=== PATIENT | female | born 1980 | race Caucasian/White ===

== ENCOUNTER → 2023-03-15 | Outpatient (CLI) | payer BC ==
--- NOTE | 2023-03-16 11:19 | US ---
EXAMINATION TYPE: US st tissue head/neck DATE OF EXAM: 03/15/2023 COMPARISON: NONE CLINICAL INDICATION: Female, 42 years old with history of R59.0 LOCALIZED ENLARGED LYMPH NODES; sonog rapher notes: palpable on left neck that comes and goes TECHNIQUE: soft tissue neck along the left palpable site FINDINGS AND IMPRESSION: Director Special Education notes: 2 lymph nodes next to each other at the palpable area, largest = 1.3 x 1.1 x 0.6cm . This could be reactive/post inflammatory. Recommend clinical follow-up. Consider ultrasound reassessm ent in 2-3 months.
== END | disposition home or self-care (01) ==
LOC: RADUSWWP 16:58
PROVIDERS: ATTEND Family Medicine
DX: R59.0 Localized enlarged lymph nodes (principal)
CPT/HCPCS: 76536

== ENCOUNTER → 2023-05-11 | Outpatient (CLI) | payer BC ==
--- NOTE | 2023-05-16 08:34 | MM ---
Reason for Exam: Screening (asymptomatic). Last mammogram was performed 1 year(s) and 4 month(s) ago. Patient History: Menarche at age 13. First Full-Term at age 35. Late child-bearing (after 28). Last menstrual period: 04/06/2023 Risk Values: Buffy 5 year model risk: 1.0%. NCI Lifetime model risk: 12.0%. Prior Study Comparison: 08/14/2019 Bilateral Screening Mammogram, [facility]. 01/18/2022 Bilateral Screening Mammogram, [facility]. 01/25/2022 Bilateral Diagnostic Mammogram, [facility]. Patient's first Mammogram. Tissue Density: The breasts are heterogeneously dense, which may obscure small masses. Findings: Analyzed By CAD. There is no suspicious group of microcalcifications or new suspicious mass. Overall Assessment: Negative, BI-RAD 1 Management: Screening Mammogram of both breasts in [address] [facility] will attempt to contact patient to return for supplemental views and ultrasound if indicated. Patient should continue monthly self-breast exams. A clinical breast exam by your physician is recommended on an annual basis. This exam should not preclude additional follow-up of suspicious palpable abnormalities. Note on Buffy scores and lifetime risk: 1. A Buffy score greater than 3% is considered moderate risk. If this is the case, consider specialist referral to assess eligibility for a risk reducing agent. 2. If overall lifetime risk for the development of breast cancer is 20% or higher, the patient may qualify for future screening with alternating mammogram and breast MRI. Electronically signed and approved by: Santosh Lagos DO
== END | disposition home or self-care (01) ==
LOC: RADMAMWWP 15:43
PROVIDERS: ATTEND Family Medicine
DX: Z12.31 Encounter for screening mammogram for malignant neoplasm of breast (principal)
CPT/HCPCS: 77063; 77067

== ENCOUNTER → 2023-05-11 | Outpatient (CLI) | payer BC ==
--- NOTE | 2023-05-13 16:33 | US ---
EXAMINATION TYPE: US pelvic complete DATE OF EXAM: 05/11/2023 COMPARISON: NONE CLINICAL INDICATION: Female, 42 years old with history of R59.0 ENLARGED LYMPH NODES,N83.201 OVARIAN CYST; Patient states ovarian cyst was seen on recent outside MRI TECHNIQUE: Transabdominal sonographic images of the pelvis were acquired. Date of LMP: 6 weeks ago EXAM MEASUREMENTS: Uterus: 9.7 x 3.1 x 4.5 cm Endometrial Stripe: 0.6 cm Right Ovary: 3.5 x 1.9 x 2.6 cm Left Ovary: 3.3 x 2.4 x 2.9 cm 1. Uterus: anteverted, the myometrium is mildly heterogeneous 2. Endometrium: appears wnl 3. Right Ovary: 1.9 x 1.2 x 1.3cm cystic area 4. Left Ovary: 1.4 x 1.3 x 1.8cm cystic area 5. Bilateral Adnexa: wnl 6. Posterior cul-de-sac: wnl IMPRESSION: 1. Thin endometrial stripe measuring 6 mm. 2. Dominant follicle or functional cyst measuring 1.9 cm on the right and 1.8 cm on the left.
== END | disposition home or self-care (01) ==
LOC: RADUSWWP 15:30
PROVIDERS: ATTEND Family Medicine
DX: N83.291 Other ovarian cyst, right side (principal); N83.292 Other ovarian cyst, left side
CPT/HCPCS: 76856

== ENCOUNTER → 2023-05-30 | Outpatient (CLI) | payer BC ==
--- NOTE | 2023-05-30 20:57 | US ---
EXAMINATION TYPE: US thyroid st tissue head/neck DATE OF EXAM: 05/30/2023 COMPARISON: CLINICAL INDICATION: Female, 42 years old with history of R59.0 LOCALIZED ENLARGED LYMPH NODES E04.1 THYROID; No abn labs. MRI showed thyroid nodule. Previous US showed enlarged lymph nodes. GLAND SIZE: Right Lobe: 4.7 x 1.3 x 1.7 cm Overall Parenchyma: homogeneous Left Lobe: 4.8 x 1.8 x 1.8 cm Overall Parenchyma: homogeneous Isthmus Thickness: 0.3 cm NODULES RIGHT: # of nodules measured on right: 1 1. 0.3 X 0.3 x 0.2 cm, mid lateral, solid or almost completely solid, hypoechoic nodule, which is w ider than tall, with smooth margins, with echogenic foci. Prior size: No prior LEFT: # of nodules measured on left: 3 1. 1.3 X 1.2 x 0.9 cm, upper mid, spongiform, anechoic nodule, which is wider than tall, with tanesha h margins, echogenic foci. Prior size: No prior 2. 1.1 X 0.9 x 0.5 cm, mid mid, mixed cystic and solid, hypoechoic nodule, which is wider than kiran l, with smooth margins, without echogenic foci. TR3 Prior size: No prior 3. 1.3 X 1.1 x 0.8 cm, lower mid, mixed cystic and solid, hypoechoic nodule, which is wider than ta ll, with smooth margins, without echogenic foci. Prior size: No prior ISTHMUS: # of nodules measured in the isthmus: 0 Bilateral neck scanned. Right lateral superior lymph nodes seen: 1- 1.4 x 0.8 x 0.5 cm 2- 1.6 x 0.4 x 0.4 cm. Left superior lymph node = 1.8 x 1.3 x 0.7 cm IMPRESSION: 1. Mildly suspicious left lobe thyroid nodule. 2. Bilateral lymphadenopathy 2017 ACR TI-RADS LEVEL: TR-RADS 3 - Mildly Suspicious: Follow if > 1.5 cm, FNA if > 2.5 cm *Highest TI-RADS level nodule reported
== END | disposition home or self-care (01) ==
LOC: RADUSWWP 16:36
PROVIDERS: ATTEND Family Medicine
DX: E04.1 Nontoxic single thyroid nodule (principal); R59.1 Generalized enlarged lymph nodes
CPT/HCPCS: 76536

== ENCOUNTER → 2023-07-10 | Outpatient (CLI) | payer BC ==
[2023-07-10 12:35] LABS: INR 0.9 (<1.2); Partial Thromboplastin Time 24.7 sec (22.0-30.0); Prothrombin Time 10.3 sec (10.0-12.5)
[2023-07-10 14:45] LABS: Basophils # (A) 0.05 X 10*3/uL (0.00-0.10); Basophils % (A) 0.8 %; Eosinophils # (A) 0.14 X 10*3/uL (0.04-0.35); Eosinophils % (A) 2.2 %; HCT 38.5 % (37.2-46.3); HGB 12.5 g/dL (12.0-15.0); Lymphocytes # (A) 1.84 X 10*3/uL (0.90-5.00); Lymphocytes % (A) 28.6 %; MCH 30.9 pg (27.0-32.0); MCHC 32.5 g/dL (32.0-37.0); MCV 95.3 FL (80.0-97.0); Mean Platelet Volume 10.6 FL (9.5-12.2); Monocytes # (A) 0.61 X 10*3/uL (0.20-1.00); Monocytes % (A) 9.5 %; NRBC Per 100 WBC 0 X 10*3/uL (0.00-0.01); Neutrophils # (A) 3.77 X 10*3/uL (1.80-7.70); Neutrophils % (A) 58.6 %; Platelet Count 302 X 10*3/uL (140-440); RBC 4.04 X 10*6/uL (4.10-5.20); RDW 12.4 % (11.5-14.5); WBC 6.43 X 10*3/uL (4.50-10.00)
[2023-07-10 15:20] LABS: ALT 19 U/L (8-44); AST 26 U/L (13-35); Albumin 4.6 g/dL (3.8-4.9); Albumin/Globulin Ratio 1.92 Ratio (1.60-3.17); Alkaline Phosphatase 51 U/L (41-126); BUN/Creat Ratio 24.71 Ratio (12.00-20.00); Blood Urea Nitrogen 17.3 mg/dL (9.0-27.0); Carbon Dioxide 23.3 mmol/L (21.6-31.8); Chloride 105 mmol/L (96-109); Globulin 2.4 g/dL (1.6-3.3); Glucose 93 mg/dL (70-110); Potassium 5.1 mmol/L (3.5-5.5); Sodium 142 mmol/L (135-145); Total Bilirubin <0.2 mg/dL (0.3-1.2)
[2023-07-10 15:40] LABS: Prealbumin 27.6 mg/dL (18.0-42.0)
[2023-07-10 15:46] LABS: Appearance,Urine Clear (Clear); Bilirubin,Urine Negative (Negative); Blood,Urine Negative (Negative); Color,Urine Yellow (Yellow); Ketones,Urine Negative (Negative); Nitrite,Urine Negative (Negative); PH, Urine 6.5; Specific Gravity,Urine 1.005 (1.001-1.030); Urobilinogen,Urine 0.2 E.U./DL
== END | disposition home or self-care (01) ==
LOC: LABWHC1 11:35
PROVIDERS: ATTEND Neurological Surgery
DX: Z01.812 Encounter for preprocedural laboratory examination (principal)
CPT/HCPCS: 36415; 80053; 81003; 83036; 84134; 85025; 85610; 85730; 87070

== ENCOUNTER → 2023-08-14 | Outpatient (CLI) | payer BC ==
--- NOTE | 2023-08-14 12:40 | XR ---
EXAMINATION TYPE: XR cervical spine limited DATE OF EXAM: 08/14/2023 COMPARISON: None HISTORY: Post cervical fusion TECHNIQUE: 2 views cervical spine FINDINGS: Anterior cervical fusion is evident C5-C7. Disc spacers are present at these levels. Remain ing disc heights are preserved. Vertebral body heights are preserved. Posterior spinal lamellar line is intact IMPRESSION: 1. Status post anterior cervical fusion C5-C7
== END | disposition home or self-care (01) ==
LOC: RADXRMAIN 08:54
PROVIDERS: ATTEND Neurological Surgery
DX: Z98.1 Arthrodesis status (principal)
CPT/HCPCS: 72040

== ENCOUNTER → 2023-11-06 | Outpatient (CLI) | payer BC ==
--- NOTE | 2023-11-06 09:57 | CT ---
EXAMINATION TYPE: CT cervical spine wo con CT DLP: 393.20 mGycm, Automated exposure control for dose reduction was used. DATE OF EXAM: 11/06/2023 9:31 AM COMPARISON: Cervical radiograph 08/14/2023. CLINICAL INDICATION:Female, 43 years old with history of M54.12 radiculopathy; PHH, radiculopathy. hx of neck sx. TECHNIQUE: Axial CT images from the skull base to the inferior aspect of T2 we obtained without intra venous contrast. Coronal and sagittal reformatted images were also reviewed. FINDINGS: Fracture: None. Osseous structures: Postsurgical changes of anterior cervical fusion involving C5-C7 with disc fusion cages. Hardware appears intact with appropriate alignment. Vertebral alignment: Within normal limits. Spinal canal/Neural Foramina: Disc bulge at C2-C3 without significant effacement of the anterior thecal sac. Central disc protrusion at C3-C4 with minimal effacement of the anterior thecal sac. Moderate bilateral neural foraminal stenosis at C5-C6 secondary to uncovertebral joint hypertrophy. Neck soft tissues: Prevertebral soft tissues are within normal limits. At least 2 left hypodense thyr oid nodules with largest measuring up to 8 mm. Other: The airway is patent. The lung apices are clear. IMPRESSION: 1. No evidence of cervical spine fracture. 2. Postsurgical changes from ACDF C5-C7. Hardware appears intact with appropriate alignment. 3. Mild multilevel degenerative disc disease.
--- NOTE | 2023-11-06 11:26 | MR ---
EXAMINATION TYPE: MR cervical spine wo con DATE OF EXAM: 11/06/2023 COMPARISON: None HISTORY: 43-year-old female M50.20 Neck pain into leah upper extremities, tingling and numbness TECHNIQUE: Multiplanar, multisequence images of the cervical spine were acquired without contrast. FINDINGS: No craniocervical junction abnormality, predental space widening, or prevertebral soft tissue swellin g. Straightening of the normal cervical lordosis with preserved alignment. Patient is status post C5-C7 ACDF. Mild posterior osteophytic ridging present onto the ventral thecal sac but without significant spinal canal stenosis especially at C5-C6. Some artifacts project over the cervical spinal cord. No convincing abnormal myelopathic cord signal change. Left thyroid lobe nodules measure up to 9 mm. Mild to moderate facet and uncovertebral joint arthropathy is present. Changes result in mild left neuroforaminal narrowing at C3-C4. Moderate left and mild right at C5-C6. No suspicious bone marrow replacement. IMPRESSION: 1. Status post C5-C7 ACDF. Some mild residual posterior osteophytic ridging especially at C5-C6 impre sses on the ventral thecal sac without significant spinal canal stenosis. 2. Straightening of the normal cervical lordosis. No malalignment. 3. Scattered mild to moderate facet and uncovertebral joint arthropathy. 4. Changes result in moderate left and mild right neuroforaminal stenosis at C5-C6. Mild on the left at C3-C4.
== END | disposition home or self-care (01) ==
LOC: RADCTMAIN 08:55
PROVIDERS: ATTEND Specialist
DX: M50.323 Other cervical disc degeneration at C6-C7 level (principal); M99.71 Connective tissue and disc stenosis of intervertebral foramina of cervical region; Z98.890 Other specified postprocedural states; Z98.1 Arthrodesis status
CPT/HCPCS: 72125; 72141